=== PATIENT | male | born 1995 | race Caucasian/White ===

== ENCOUNTER 2019-08-08 22:03 | Emergency (ER) | payer SELFPAY ==
[~2019-08-08] VITALS: Ht 165.1 cm; Wt 68.0 kg
[2019-08-08 22:05] VITALS: BP 168/93
--- NOTE | 2019-08-08 22:11 | NUR ---
PT AMBULATED TO BED 4 WITH STEADY GAIT
--- NOTE | 2019-08-08 22:35 | NUR ---
Dr. Gregg examining patient.
--- NOTE | 2019-08-08 22:43 | NUR ---
X-Ray at bedside.
[2019-08-08] MEDS ORDERED: LORazepam 2 MG/ML VIAL IM ONE (22:50)
--- NOTE | 2019-08-08 22:57 | NUR ---
PT MEDICATED WITH [facility]. TOLERATED WELL. JOCY
--- NOTE | 2019-08-08 22:59 | NUR ---
24M PRESENTS TO ED WITH C/O SOB/WEAKNESS/BOTH HAND NUMBNESS X 1 DAY; PAIN 5/10; PRIOR TO ARRIVING TO ER PT SMOKED THC; UPON ASSESSMENT NEURO WNL. PT APPEARS TO BE ANXIOUS. RESOLVED SOB. DENIES LOC/HEADACHE. DENIES COUGH. RR EVEN AND UNLABORED. VSS. HEART SOUNDS EVEN AND REGULAR. ABDOMEN SOFT AND NONTENDER TO PALPATION. BOWEL SOUNDS NORMOACTIVE ON ALL QUADRANTS. PT SITTING IN BED. PMH: PT DENIES NKA NEGATIVE FOR COVID SCREENING. WEARING MASK.
[2019-08-08 23:51] VITALS: BP 168/93
== END 2019-08-08 23:25 | disposition home or self-care (01) ==
LOC: MED 22:03
DX: F41.9 Anxiety disorder, unspecified (principal); F12.10 Cannabis abuse, uncomplicated
CPT/HCPCS: 36600; 71045; 82803; 96372; 99284; J2060